=== PATIENT | female | born 1990 | race Caucasian/White ===

== ENCOUNTER 2020-02-25 22:01 | Inpatient (IN) | payer OTHER ==
[2020-02-25 22:44] LABS: #Basophils 0.1 thou/uL (0.0-0.2); #Eosinphils 0.2 thou/uL (0.0-0.7); #Lymphocytes 3.5 thou/uL (1.20-3.40); #Monocytes 0.8 thou/uL (0.11-0.59); %Basophils 1.2 % (0.0-1.0); %Eosinophils 1.6 % (0.0-10.0); %Lymphocytes 32.4 % (21.0-51.0); %Monocytes 7.9 % (0.0-10.0); %Neutrophils 56.9 % (42.0-75.0); Hemoglobin 14.3 g/dL (12.0-16.0); Mean Corpuscular HGB CONC 31.9 g/dL (32.0-36.0); Mean Corpuscular Hemoglobin 29.5 pg (27.0-31.0); Mean Corpuscular Volume 92.4 fL (78.0-98.0); Mean Platelet Volume 7.8 fL (7.4-10.4); Platelet Count 334 thou/uL (130-400); RBC Distribution Width 12.4 % (11.5-14.5); Red Blood Cell (RBC) Count 4.86 mill/uL (4.20-5.40); White Blood Cell (WBC) Count 10.6 thou/uL (4.8-10.8)
[2020-02-25 23:00] LABS: Calcium 9.4 mg/dL (7.8-10.44); Chloride 103 mmol/L (98-107); Sodium 139 mmol/L (136-145)
[2020-02-25] MEDS ORDERED: Lorazepam 2 MG/ML VIAL ONE (23:05)
[2020-02-25] MEDS ORDERED: Magnesium 2 GM/50 ML BAG (IN WATER) ONE (23:10)
[2020-02-25] MEDS ORDERED: methylPREDNISolone Sod Succ/PF 125 MG/2 ML VIAL ONE (23:10)
[2020-02-25 23:11] LABS: ALT (SGPT) 7 U/L (8-55); AST (SGOT) 11 U/L (5-34); Albumin 4.2 g/dL (3.5-5.0); Alkaline Phosphatase 81 U/L (40-110); BUN (Urea Nitrogen) 12 mg/dL (7.0-18.7); Bilirubin, Total 0.2 mg/dL (0.2-1.2); Calc. Creatinine Clearance 0 mL/min (70-130); Carbon Dioxide 21 mmol/L (22-29); Estimated GFR-MDRD 63; Globulin 3.1 g/dL (2.4-3.5); Glucose 94 mg/dL (70-105); Protein, Total 7.3 g/dL (6.0-8.3)
[2020-02-25 23:15] LABS: Anion Gap 19 mmol/L (10-20)
[2020-02-25 23:19] LABS: Actual Bicarbonate (HCO3a) 25.2 mEq/L (22-28); Analyzer IN Cardio ER; Base Excess (BEa) -1.8 mEq/L (-2.0 to +3.0); CO2 Tension 51.7 mmHg (35.0-45.0); Calcium, Ionized 1.21 mmol/L (1.12-1.30); Carboxyhemoglobin (COHb) 0.1 gm% (0.0-3.0); Hemoglobin (Hb) 14.1 g/dL (12.0-16.0); O2 Tension (PaO2) 106.2 mmHg (80.0-100.0); Potassium - ABG Lab 3.87 mmol/L (3.70-5.30); Puncture Site RRA; pH, Arterial 7.31 (7.35-7.45)
[2020-02-25 23:20] LABS: ALV-art Gradient 150.025 (0-20)
[2020-02-25 23:23] LABS: BHCG - Serum Negative (NEGATIVE); Pregs Control Background? CLEAR/WHITE (CLR/WHITE); Pregs Control Bar Appear? YES (CONTROL BAR)
[2020-02-25] MEDS ORDERED: Albuterol Sulfate 2.5 mg/3 ml Neb ONE (23:30)
[2020-02-26] MEDS ORDERED: Albuterol Sulfate 2.5 mg/3 ml Neb ONE (00:39)
[2020-02-26] MEDS ORDERED: Acetaminophen 325 MG TAB PO PRN (02:06)
[2020-02-26] MEDS ORDERED: Ondansetron PF 4 MG/2 ML Vial IVP PRN (02:06)
[2020-02-26] MEDS: HYDROcodone/Acetaminophen 5/325 mg Tablet PO PRN ×3 (03:56→19:42)
[2020-02-26] MEDS: Guaifenesin DM 100-10/5 ML UDCUP PO PRN ×2 (04:12→19:44)
[2020-02-26 04:23] VITALS: BMI 23.2
[2020-02-26] MEDS: Sodium Chloride 0.9% 1,000 ML IV SCH ×3 (04:27→23:16)
[2020-02-26 05:33] LABS: Amphetamine Detected (NotDetected); Barbiturates Screen Not Detected (NotDetected); Benzodiazepine Screen Detected (NotDetected); Cocaine Metabolite Screen Not Detected (NotDetected); Medtox Control Line Valid? VALID (VALID); Medtox Reader # READER 4; Methadone Not Detected (NotDetected); Methamphetamine Detected (NotDetected); Opiate Screen Not Detected (NotDetected); Oxycodone Screen Not Detected (NotDetected); Phencyclidine (PCP) Not Detected (NotDetected); THC/Cannabinoid Screen Not Detected (NotDetected); Tricyclic Screen Not Detected (NotDetected)
[2020-02-26] MEDS: methylPREDNISolone Sod Succ 40 MG VIAL IVP SCH ×3 (06:32→17:03)
[2020-02-26] MEDS: Budesonide 0.5 MG/2 ML NEB INH SCH ×2 (06:42→18:26)
--- NOTE | 2020-02-26 07:18 | RAD ---
CHEST 1 VIEW: Date: 02/25/2020 HISTORY: Emergency exam. Breathing difficulty. COMPARISON: None. FINDINGS: Lungs are clear. No pneumothorax. No effusion. Cardiac silhouette and mediastinal contours are within normal limits. No acute osseous abnormality. IMPRESSION: No acute intrathoracic abnormality. POS: HOME
[2020-02-26] MEDS: Enoxaparin Sodium 40 MG/0.4 ML SYRINGE SC SCH (08:33)
--- NOTE | 2020-02-26 10:40 | HP ---
PRIMARY CARE PHYSICIAN: The patient does not have any primary care physician in this community as the patient came from [place]. CHIEF COMPLAINT: "I'm having shortness of breath for the last 3 days. HISTORY OF PRESENT ILLNESS: This is a 26-year-old female patient, who has a history of moderate, intermittent bronchial asthma, and the patient had intubation, which required mechanical ventilator support twice in the past so far, but not related to asthma per se. The patient was intubated and required mechanical ventilator support because of methamphetamine abuse in the past and subsequently about a month ago, the patient had MRSA pneumonia, which required mechanical ventilator support for 3 days at [place]. The patient has recovered from that MRSA pneumonia and subsequently, the patient has completed a course of oral antibiotics, but since then, the patient has been having intermittent episodes of shortness of breath that has been gradually getting worse over the course of last 3 days, and the patient states that she drove all the way from [place] about a month ago. Three days ago, the patient was incarcerated and currently, the patient did not come to [facility] because of possession of recreational drugs. The patient has been having gradually worsening shortness of breath for the last 3 days associated with cough that is nonproductive. Otherwise, denies any complaints of pleuritic chest pain. No recent history of fever. Subsequently because of worsening symptomatology, the patient was brought to the emergency department, where the patient had evaluation and the patient has hypoxia, which required supplemental oxygen. Otherwise, the patient has no fever. Subsequently, the patient received [id number] nebulizations because of significant bronchial spasm with which the patient's symptoms did not improve significantly and so the patient has been admitted to Internal Medicine Service. Currently, the patient uses 2 L of oxygen via nasal cannula and she is saturating at 94%. Otherwise, the patient appears minimally comfortable with head of the bed elevated on the stretcher. PAST MEDICAL HISTORY: Moderate, intermittent bronchial asthma, recent MRSA pneumonia, which required mechanical ventilator support, and mechanical ventilator support in the past for methamphetamine abuse. PAST SURGICAL HISTORY: None. ALLERGIES: THE PATIENT IS NOT ALLERGIC TO ANY MEDICATIONS. CURRENT MEDICATIONS: At home, Advair Diskus, nebulizer and rescue inhaler. SOCIAL HISTORY: The patient is a [place] of [place] and came to [place] recently. Otherwise, the patient denies any complaints of tobacco abuse or alcohol abuse, but the patient had recreational drug abuse with methamphetamines and the patient states that she had last methamphetamine use about a year ago, but the patient still smokes marijuana. FAMILY HISTORY: Not significant. REVIEW OF SYSTEMS: As mentioned in the history of present illness. Apart from that, a 14-point review of systems has been conducted and noncontributory. PHYSICAL EXAMINATION: VITAL SIGNS: Temperature 97.8, pulse 112, respiratory rate 28, and blood pressure 132/73 GENERAL: The patient appears comfortable on the stretcher, not appears to be in any obvious cardiopulmonary distress. HEENT: Mucous membranes are pink and moist. Acyanotic. Anicteric. No cyanosis, clubbing, pedal edema, or lymphadenopathy. Atraumatic and normocephalic. Eyes, extraocular movements are intact. Pupils are equal and reactive to light bilaterally and accommodation reflex bilaterally. NECK: Supple. No jugular venous distention. No thyromegaly or carotid bruits. CHEST: Bilaterally symmetrical. Trachea is slightly deviated to the right side. Air entry is diminished at both bases. Otherwise, no wheezing or rhonchi. CARDIOVASCULAR: Normal intensity of S1 and S2 without S3. No murmurs are appreciated. ABDOMEN: Soft without any distention. Nontender. No organomegaly. Bowel sounds are normoactive. RESISTOR TESTER: The patient is alert, awake, and oriented to time, place, and person. Cranial nerves 2 through 12 are intact. No focal motor or sensory deficits. EXTREMITIES: No edema or calf asymmetry. LABORATORY DATA: WBC 10.3, hemoglobin 14.3, hematocrit 44.9, and platelets 334. D-dimer 0.27. ABG revealed pH of 7.31, PCO2 of 51, and PO2 of 106. Sodium 139, potassium 4.0, chloride 103, bicarb 29, anion gap 19, BUN 12, creatinine 1.0, glucose 94, lactic acid 1.7, calcium 9.4, total bilirubin 0.2, AST 11, ALT 7, and alkaline phosphatase 81. Troponin less than 0.010. Total protein 7.3, albumin 4.2, and globulin 3.1. DIAGNOSTIC STUDIES: Chest x-ray unremarkable. ASSESSMENT: 1. Acute exacerbation of moderate, intermittent bronchial asthma. a. Keep the patient on oxygen via nasal cannula and titrate to keep the saturations more than 92%. b. Solu-Medrol 40 mg intravenously every 6 hours. c. Pulmicort 0.5 mg nebulization every 12 hours. d. DuoNebs every 4 hours. e. Intravenous doxycycline 100 mg twice a day empirically. 2. History of recreational drug abuse. a. Check urine drug screen. 3. Prophylaxis. a. Lovenox 40 mg subcutaneously once a day for DVT prophylaxis. Job ID: [id number]
--- NOTE | 2020-02-26 12:48 | PDOC.EVN ---
Event Note - Event Note Event Note: Visited with and examined patient this morning. Upon entry into room she appeared to be sleeping quietly but once awoken had increased shortness of breath upon carrying a conversation. She had just received a neb treatment within 30 minutes prior to my arrival per her nurse. States she is feeling better than the previous night but still has shortness of breath when just walking across her room. Oxygen was off at the time as she was lying there but I helped her place it back on at 3L. She was able to speak in complete sentences during interview and spoke at length of illness and her current situation in [place]. Patient remains afebrile as we await blood culture results. Diminished lung sounds in bilateral bases with minimal wheezes heard throughout. Will continue with scheduled neb treatments and IV doxycycline and steroids. She has been maintaining her O2 levels at 97-100% while on O2 NC.
[2020-02-27] MEDS: methylPREDNISolone Sod Succ 40 MG VIAL IVP SCH ×4 (00:08→17:45)
[2020-02-27] MEDS: ALPRAZolam 0.5 MG TAB PO PRN ×3 (00:17→17:45)
[2020-02-27] MEDS: HYDROcodone/Acetaminophen 5/325 mg Tablet PO PRN ×4 (01:34→17:45)
[2020-02-27] MEDS: Budesonide 0.5 MG/2 ML NEB INH SCH ×2 (07:11→18:37)
[2020-02-27] MEDS: Enoxaparin Sodium 40 MG/0.4 ML SYRINGE SC SCH (08:08)
--- NOTE | 2020-02-27 08:21 | PDOC.HOSPP ---
- Subjective Encounter Date: 02/27/20 Encounter Time: 08:05 Subjective: f/u for asthma exacerbation receiving Solumedrol/Doxycycline/Pulmicort/Duonebs. States some improvement overall since admit but has intermittent wheezing when stressed or walking. - Objective Vital Signs & Weight: Vital Signs (12 hours) Temp Pulse Resp BP Pulse Ox 02/27/20 07:11 110 H 16 100 02/27/20 03:00 97.9 F 116 H 16 110/69 95 02/27/20 02:28 114 H 18 98 02/27/20 00:07 119 H 22 H 96 02/27/20 00:00 96 02/26/20 23:00 98.2 F 119 H 16 104/66 94 L 02/26/20 22:25 121 H 18 97 Weight Weight 135 lb 6.4 oz I&O: 02/26/20 02/27/20 02/28/20 06:59 06:59 06:59 Intake Total 3750 Balance 3750 Result Diagrams: 02/25/20 22:37 02/25/20 22:37 Additional Labs: Microbiology 02/25/20 23:03 Venous blood - Left Foot Blood Culture - Preliminary Specimen has been received and culture in progress. No Growth to date. Laboratory Tests 02/26/20 05:00 Ur Amphetamines Screen Detected H U Methamphetamines Scrn Detected H U Benzodiazepines Scrn Detected H Radiology Reviewed by me: Yes (PCXR - no acute infiltrates) Hospitalist ROS - Medication Medications: Active Medications Generic Name Dose Route Start Last Admin Trade Name Freq PRN Reason Stop Dose Admin Hydrocodone Bitart/Acetaminophen 1 tab 02/26/20 02:06 02/27/20 08:06 Fraser 5/325 PO 1 tab Q4H PRN Administration Moderate Pain (4-6) Albuterol/Ipratropium 3 ml 02/26/20 02:30 02/27/20 07:13 Duoneb NEB 3 ml [id number] DAVID Administration Albuterol/Ipratropium 3 ml 02/26/20 23:55 02/27/20 00:07 Duoneb NEB 3 ml [id number] PRN Administration SOB &/or Wheezing Alprazolam 0.5 mg 02/26/20 04:20 02/27/20 00:17 Xanax PO 0.5 mg TIDPRN PRN Administration Anxiety Budesonide 0.5 mg 02/26/20 06:30 02/27/20 07:11 Pulmicort Neb Solution INH 0.5 mg BID-RT DAVID Administration Enoxaparin Sodium 40 mg 02/26/20 09:00 02/27/20 08:08 Lovenox SC 40 mg 0900 DAVID Administration Guaifenesin/Dextromethorphan 15 ml 02/26/20 02:06 02/26/20 19:44 Robitussin Dm PO 15 ml Q4H PRN Administration Cough Doxycycline Hyclate 100 mg/ 100 mls @ 100 mls/hr 02/26/20 04:00 02/27/20 05: 05 Sodium Chloride IVPB 100 mls 0400,1600 DAVID Administration Methylprednisolone Sodium Succinate 40 mg 02/26/20 06:00 02/27/20 05:06 Solu-Medrol IVP 40 mg Q6HR DAVID Administration - Exam General - other findings: anxious, responsive to questions Eye: PERRL, anicteric sclera ENT: normocephalic atraumatic, no oropharyngeal lesions Neck: supple, symmetric, no JVD, no thyromegaly Heart: no murmur, no gallops, no rubs, normal peripheral pulses Heart - other findings: S1, S2 tachycardic Respiratory: tachypneic Respiratory - other findings: diminished bilat, inspiratory and exp wheezes Gastrointestinal: soft, non-tender, non-distended, normal bowel sounds, no palpable masses Extremities: no cyanosis, no clubbing, no edema Skin: normal turgor, no lesions Neurological: cranial nerve grossly intact, no new deficit Musculoskeletal: normal tone, normal strength, no muscle wasting Psychiatric: A&O x 3 Psychiatric - other findings: anxious, alert Hosp A/P (1) Asthma exacerbation Code(s): J45.901 - UNSPECIFIED ASTHMA WITH (ACUTE) EXACERBATION Status: Acute Qualifiers: Asthma severity: moderate Plan: Continue pulmonary support, Duonebs/Solumedrol/Doxycycline/Pulmicort, add Singulair 10mg daily, O2 PRN (2) Acute respiratory failure with hypoxia Code(s): J96.01 - ACUTE RESPIRATORY FAILURE WITH HYPOXIA Status: Acute Plan: See above in #1, wean O2 support as clinically indicated (3) Methamphetamine abuse Code(s): F15.10 - OTHER STIMULANT ABUSE, UNCOMPLICATED Status: Chronic Plan: Substance abuse detox program after d/c (4) Anxiety Code(s): F41.9 - ANXIETY DISORDER, UNSPECIFIED Status: Acute Plan: Multifactorial, Xanax 0.5mg po TID PRN - Plan continue antibiotics, social media marketer, respiratory therapy, out of bed/ambulate , DVT proph w/SCDs Continue pulmonary support Wean O2 PRN Add Singulair 10mg po daily Continue Solumedrol/Duonebs/Pulmicort OOB/ambulate Saline lock IVF's Likely d/c in 24h
[2020-02-27] MEDS ORDERED: Montelukast Sodium 10 mg Tablet PO SCH (08:30)
[2020-02-27] MEDS: Sodium Chloride 0.9% 1,000 ML IV SCH (09:35)
[2020-02-28] MEDS: methylPREDNISolone Sod Succ 40 MG VIAL IVP SCH ×2 (00:59→05:02)
[2020-02-28] MEDS: HYDROcodone/Acetaminophen 5/325 mg Tablet PO PRN (05:08)
[2020-02-28] MEDS: ALPRAZolam 0.5 MG TAB PO PRN (05:09)
[2020-02-28] MEDS: Budesonide 0.5 MG/2 ML NEB INH SCH (06:15)
[2020-02-28] MEDS ORDERED: Doxycycline 100 MG CAP PO SCH (09:00)
[2020-02-28] MEDS: Enoxaparin Sodium 40 MG/0.4 ML SYRINGE SC SCH (09:18)
[2020-02-28] MEDS ORDERED: predniSONE 20 MG TAB PO SCH (09:45)
[2020-02-28 11:00] VITALS: BP 112/70; TEMP 97.6
--- NOTE | 2020-02-28 11:04 | DIS ---
DATE OF ADMISSION: 02/26/2020 DATE OF DISCHARGE: 02/28/2020 DISCHARGE DIAGNOSES: 1. Acute asthma exacerbation, improved. 2. Acute hypoxic respiratory failure secondarily to acute asthma exacerbation, resolved. 3. Methamphetamine abuse. 4. Anxiety. CONSULTATIONS: None. PERTINENT LABS AND X-RAY FINDINGS: Complete metabolic profile within normal limits. Lactic acid level 1.7. Serum beta-hCG negative on 02/25/2020. CBC showed a white blood cell count of 10.6, hemoglobin 14.3, hematocrit 45, and platelet count 334. D-dimer less than 0.27. Urine drug screen dated 02/26/2020, positive for amphetamines and methamphetamines with benzodiazepines. Blood culture x1 dated 02/25/2020, negative. Portable chest x-ray dated 02/25/2020, showed no acute cardiopulmonary process. HOSPITAL COURSE: The patient was admitted to the medical floor after presenting with acute dyspnea in the context of known asthma. The patient was noted with mild hypoxia and placed on oxygen by nasal cannula and initiated on IV Solu-Medrol, DuoNebs, doxycycline, and Pulmicort nebulized solution. The patient was slow to clinically improve in the first 24 hours and continued on pulmonary supportive management. The patient did receive Xanax for anxiety as well as the initiation of Singulair. The patient weaned off oxygen supplementation, maintaining O2 saturations in the mid to upper 90% on room air. Overall, the patient did remain clinically stable without evidence for pneumonia or an acute infiltrate on chest imaging. I have examined the patient at the time of discharge and discussed followup instructions. The patient verbalized understanding and agreement and ready for discharge on 02/28/2020. DISCHARGE MEDICATIONS: 1. Prednisone 20 mg 2 tablets p.o. daily x2 days followed by 1 tablet p.o. daily x2 days followed by half a tablet p.o. daily x2 days. 2. Doxycycline 100 mg p.o. b.i.d. x7 days. 3. Singulair 10 mg p.o. daily. 4. Albuterol sulfate 1 to 2 puffs inhaled q.6 hours p.r.n. 5. Advair Diskus one inhalation b.i.d. FOLLOWUP: The patient will follow up with medical personnel at the [facility]. CONDITION ON DISCHARGE: Stable. ACTIVITY: Ad sam. DIET: Regular. CODE STATUS: Full. DISPOSITION: Discharged to [facility] on 02/28/2020. TIME SPENT: Total time preparing and coordinating discharge was 32 minutes. Job ID: [id number]
[2020-02-28] MEDS ORDERED: Montelukast Sodium 10 mg Tablet PO SCH (21:00)
--- NOTE | 2020-02-29 04:37 | PQF ---
YAMILA HERNANDEZ CHARLES DO [id number] T4-A- 4412 [id number] CLINICAL DOCUMENTATION CLARIFICATION FORM: POST DISCHARGE Addendum to original discharge summary date: ____ Late entry note date: __ DATE:02/29/2020 ATTN: Ariel Camargo Please exercise your independent, professional judgment in responding to the clarification form. Clinical indicators are provided on the bottom of this form for your review In your clinical opinion based on clinical findings below, can you please specify etiology of Asthma Exacerbation if due to: Please check appropriate box(s): [ x ] Methamphetamine abuse [ ] Status Asthmaticus [ ] Other diagnosis [ ] Unable to determine For continuity of documentation, please document condition throughout progress notes and discharge summary. Thank You. CLINICAL INDICATORS - SIGNS / SYMPTOMS/ LABS ABG 02/24 pH 7.31, pCO2 51.7, Po2 106.2, O2 sat 97.5, O2 contend 19.3 Vital signs 02/24 BP 129/107, Pulse 128, Resp 30, temp 98.3 Laboratory Toxicology 02/25 Postive with Amphetamine, Methamphetamine and Benzodiazepines ED notes p1 10 Labs are reassuring with no evidence of leukocytosis, lactic acid or respiratory failure, but continued respiratory distress ED notes p11 02/24 Status asthmaticus H&P p1 02/24 Dr Mcclure has been having gradually worsening shortness of breath for the last 3 days with associated cough that is nonproductive H&P p1 02/24 Dr Mcclure To ED for evaluation and the pt has hypoxia H&P p1 02/24 Dr Mcclure The pt was intubated and required MV support because of methamphetamine abuse in the past and subsequently about a month ago H&P p2 02/24 Dr Mcclure Pt had recreational drug abuse with methamphetamines and astuse about a year ago but still smokers marijuana Discharge summary p1 02/27 acute hypoxic respiratory failure secondary to acute asthma exacerbation RISK FACTORS H&P p1 5/8 Methamphetamine abuse H&P p1 02/25 Anxiety H&P p3 02/25 Acute exacerbation of moderate, intermittent bronchial asthma Discharge summary p1 02/27 - Acute hypoxic respiratory failure TREATMENT DEC 23 IV Solumedrol 125 mg DEC 23 Ventolin 2.5 mg Neb DEC 23 Duoneb 3ml neb DEC 23 Pulmicort neb Solution 0.5 mg inhaler DEC 23 Prednisode 40 mg oral Arteral blood gas 02/24 Respiratory Panelo 02/24 3L Oxygen Chest x-ray 02/25 Substabce abuse detox program after d/c (This form is maintained as a part of the permanent medical record) 2014 [employer]. All Rights Reserved [email or web address]
--- NOTE | 2020-02-29 04:37 | PQF ---
YAMILA HERNANDEZ CHARLES DO [id number] T4-A- 4412 [id number] CLINICAL DOCUMENTATION CLARIFICATION FORM: POST DISCHARGE Addendum to original discharge summary date: ____ Late entry note date: __ DATE:02/29/2020 ATTN: Ariel Camargo Please exercise your independent, professional judgment in responding to the clarification form. Clinical indicators are provided on the bottom of this form for your review Diagnosis: Acute Hypoxic Respiratory Failure Present on Admission (POA): [ x ] Yes [ ] No [ ] Unable to determine Coding guidelines require hospitals to identify whether a diagnosis was present on admission (POA) or not. To accurately assign the appropriate POA indicator, this information must be clearly documented within the medical record. CLINICAL INDICATORS - SIGNS / SYMPTOMS / LABS ABG 02/24 pH 7.31, pCO2 51.7, Po2 106.2, O2 sat 97.5, O2 content 19.3 Vital signs 02/24 BP 129/107, Pulse 128, Resp 30, temp 98.3 ED notes p1 10 Labs are reassuring with no evidence of leukocytosis, lactic acid or respiratory failure, but continued respiratory distress H&P p1 02/24 Dr Mcclure has been having gradually worsening shortness of breath for the last 3 days with associated cough that is nonproductive H&P p1 02/24 Dr Mcclure To ED for evaluation and the pt has hypoxia Discharge summary p1 02/27 acute hypoxic respiratory failure secondary to acute asthma exacerbation RISK FACTORS: H&P p1 02/25 Methamphetamine abuse H&P p1 02/25 Anxiety H&P p3 02/25 Acute exacerbation of moderate, intermittent bronchial asthma TREATMENT: MAR 02/24 IV Solumedrol 125 mg MAR 02/24 Ventolin 2.5 mg Neb MAR 02/24 Duoneb 3ml neb MAR 02/25 Pulmicort neb Solution 0.5 mg inhaler MAR 02/27 Prednisode 40 mg oral Arterial blood gas 02/24 Respiratory Panelo 02/24 3L Oxygen chest x-ray 02/24 (This form is maintained as a part of the permanent medical record) 2014 [employer]. All Rights Reserved [email or web address] [email or web address]
== END 2020-02-28 11:08 | DRG 917 ==
LOC: ERS 22:01 → T4-A 02-26 02:00 → EDBD 02-26 02:00
PROVIDERS: ADMIT Hospitalist; ATTEND Hospitalist
DX: T43.621A Poisoning by amphetamines, accidental (unintentional), initial encounter (principal); J96.01 Acute respiratory failure with hypoxia; J45.41 Moderate persistent asthma with (acute) exacerbation; F15.10 Other stimulant abuse, uncomplicated; F41.9 Anxiety disorder, unspecified; F12.10 Cannabis abuse, uncomplicated; Z79.51 Long term (current) use of inhaled steroids
CPT/HCPCS: 36415; 71045; 80053; 80306; 82805; 83605; 84484; 84703; 85025; 85379; 87040; 93005; 94640; 96365; 96367; 96375; J1650; J1956; J2060; J2920; J2930; J3475; J3490; J7512; J7611; J7620; J7626